=== PATIENT | male | born 1970 | race African-American/Black ===

== ENCOUNTER 2017-10-18 01:34 | Emergency (ER) | payer SELFPAY ==
[~2017-10-18] VITALS: Ht 175.3 cm; Wt 72.6 kg
[~2017-10-18 01:34] MED LIST: IBP800T PO; SULF1TAB35 PO; TRM50T PO
--- OUTSIDE RECORDS SUMMARY | 2017-10-18 01:41 | XMS REPORT ---
Author Author LINH METCALF Organization [employer] Address Unknown Phone Unavailable Care Team Providers Care Content Curator Name Role Phone LINH METCALF CP Unavailable Allergies No Known Allergies Problems Problem Type Condition ICD-9 Code Onset Dates Condition Status Problem Unspecified gastritis and gastroduodenitis without mention of hemorrhage 535.50 Active Problem Chest pain, unspecified 786.50 Active Problem Screening examination for venereal disease V74.5 Active Assessment UTI (urinary tract infection) 599.0 Active Medications No Known Medications Procedures Procedure Coding System Code Date Office Visit, New Pt., Level 1 CPT-4 54930 Jul 13, 2015 URINALYSIS, AUTO, W/O SCOPE CPT-4 83898 Jul 13, 2015 Results Name Result Date Reference Range Unit Abnormality Flag UA LONG DIP (IN HOUSE) Summary Purpose [employer] Submission
--- OUTSIDE RECORDS SUMMARY | 2017-10-18 01:41 | XMS REPORT ---
Author Author LINH METCALF Organization [employer] Address Unknown Phone Unavailable Care Team Providers Care Mixer Operator Hot Metal Name Role Phone LINH METCALF CP Unavailable Allergies No Known Allergies Problems Problem Type Condition ICD-9 Code Onset Dates Condition Status Problem Unspecified gastritis and gastroduodenitis without mention of hemorrhage 535.50 Active Problem Chest pain, unspecified 786.50 Active Problem Screening examination for venereal disease V74.5 Active Medications Medication Code System Code Instructions Start Date End Date Status Dosage Ibuprofen [facility] [address]-06 200 MG Orally every 6 hrs Jun 22, 2015 1 tablet as needed Results No Known Results Summary Purpose [employer]Works Submission
--- OUTSIDE RECORDS SUMMARY | 2017-10-18 01:41 | XMS REPORT ---
Author FLORENCIO Calvillo [facility] [employer] Address Unknown Phone Unavailable Care Team Providers Care Plywood Layup Line Core Feeder Name Role Phone FLORENCIO BARNARD CP Unavailable Allergies, Adverse Reactions, Alerts Substance Reaction Event Type N.K.D.A. Info Not Available Non Drug Allergy Problems Problem Type Condition Code Onset Dates Condition Status Problem Unspecified gastritis and gastroduodenitis without mention of hemorrhage 535.50 Active Problem Chest pain, unspecified 786.50 Active Problem Screening examination for venereal disease V74.5 Active Assessment Dental caries K02.9 Active Medications No Known Medications Procedures Procedure Coding System Code Date SURG REMOVAL ERUPTED TOOTH CPT-4 D7210 January 10, 2016 Vital Signs Date/Time: January 10, 2016 Blood Pressure Diastolic 105 mmHg Blood Pressure Systolic 167 mmHg Height 69 in Results No Known Results Summary Purpose [employer] Submission
--- OUTSIDE RECORDS SUMMARY | 2017-10-18 01:42 | XMS REPORT ---
Author Author AVELINO VANCE Organization [employer] Address Unknown Phone Unavailable Care Team Providers Care Irrigation Flume Layer Name Role Phone AVELINO VANCE CP Unavailable Allergies No Known Allergies Problems Problem Type Condition ICD-9 Code Onset Dates Condition Status Problem Unspecified gastritis and gastroduodenitis without mention of hemorrhage 535.50 Active Problem Chest pain, unspecified 786.50 Active Problem Screening examination for venereal disease V74.5 Active Medications Medication Code System Code Instructions Start Date End Date Status Dosage Pepcid [facility] [address]-20 20 MG Orally 2 times a day Jun 29, 2015 1 tablet at bedtime Results No Known Results Summary Purpose eClinicalWorks Submission
--- OUTSIDE RECORDS SUMMARY | 2017-10-18 01:42 | XMS REPORT ---
Author Author LINH METCALF [facility] Address [address] [place] [address] Care Team Providers Care Senior Software Quality Analyst Name Role Phone LINH METCALF Unavailable PROBLEMS Type Condition ICD9-CM Code QAZ38-LE Code Onset Dates Condition Status SNOMED Code Problem Screening examination for venereal disease V74.5 Active 436422998 Problem Unspecified gastritis and gastroduodenitis without mention of hemorrhage 535.50 Active 487334858 Problem Chest pain, unspecified 786.50 Active 64789120 ALLERGIES Unknown Allergies SOCIAL HISTORY No smoking Hx information available PLAN OF CARE VITAL SIGNS MEDICATIONS Medication Instructions Dosage Frequency Start Date End Date Duration Status Pepcid 20 MG Orally 2 times a day 1 tablet at bedtime 12h 08 Jun, 2015 30 day(s) Active RESULTS No Results PROCEDURES No Known procedures IMMUNIZATIONS No Known Immunizations
--- OUTSIDE RECORDS SUMMARY | 2017-10-18 01:42 | XMS REPORT ---
Author Author LINH METCALF Organization [employer] Address Unknown Phone Unavailable Care Team Providers Care Resident Assistant Cna Name Role Phone LINH METCALF CP Unavailable Allergies No Known Allergies Problems Problem Type Condition ICD-9 Code Onset Dates Condition Status Problem Unspecified gastritis and gastroduodenitis without mention of hemorrhage 535.50 Active Problem Chest pain, unspecified 786.50 Active Problem Screening examination for venereal disease V74.5 Active Medications Medication Code System Code Instructions Start Date End Date Status Dosage Pepcid [facility] [address]-12 20 MG Orally Once a day INMATE Jul 16, 2015 1 tablet at bedtime Results No Known Results Summary Purpose eClinicalWorks Submission
--- OUTSIDE RECORDS SUMMARY | 2017-10-18 01:42 | XMS REPORT | Continuity of Care Document ---
Author Author [facility] Address Unknown Phone Unavailable Allergies There is no data. Medications There is no data. Problems Date Dx Coded Attending Type Code Diagnosis Diagnosed By 07/09/2013 AP ASHER DO V74.5 STD SCREEN 07/09/2013 LINH METCALF APRN V74.5 STD SCREEN 02/10/2014 LINH METCALF APRN 535.50 GASTRITIS UNSPEC 02/10/2014 LINH METCALF APRN 786.50 CHEST PAIN Procedures Code Description [place] [address] ROUTINE VENIPUNCTURE 07/09/2013 65602 HEPATITIS PROFILE 07/10/2013 04018 HIV ANTIBODIES (L) 07/11/2013 40216 SYPHILLIS-[facility] 07/15/2013 42006 GC/CHLAM URINE ([facility]) 07/15/2013 Results There is no data. Encounters ACCT No. Visit Date/Time Discharge Status Pt. Type Provider Facility Loc./Unit Complaint [id number] 02/10/2014 09:01:00 02/10/2014 23:59:59 CLS Outpatient LINH METCALF APRN [id number] 07/09/2013 15:40:00 07/09/2013 23:59:59 CLS Outpatient AP ASHER DO
--- NOTE | 2017-10-18 02:31 | ED Back Pain ---
General Chief Complaint: General Problems/Pain Stated Complaint: PINCHED NERVE IN BACK Nursing Triage Note: PATIENT STATES THAT HE HAS A PINCHED NERVE. HE HAD ONE TWO YEARS AGO AND STATES IT FEELS THE SAME. HE STATES IT IF A PAIN UNDER HIS LEFT SHOULDER BLADE. IT IS SHARP AND CAUSES PAIN WITH ROM OF HIS NECK, FINGERS GO NUMB. HE TOOK A FRIENDS FLEXERIL AND IT DID NOT HELP. Nursing Sepsis Screen: No Definite Risk Source of Information: Patient Exam Limitations: No Limitations History of Present Illness Time Seen by Provider: 02:16 Initial Comments Here with report of pain to his upper back between the left scapula and the spine. Pain onset after lifting a [employer] cabinet and address her. Apparently somebody almost dropped a cabinet and he had the gravid quickly to protect somebody else. He feels like maybe he pulled a muscle at that time. Denies other injury. This occurred about 5 days ago and pain is been going on since. Location: Paraspinous Muscles Timing/Duration: 4-5 Days Severity: Moderate Pain/Injury Location: Back Method of Injury: Other Associated Symptoms: muscle spasms, No weakness, No sensory/motor loss, No lower back pain Allergies and Home Medications Allergies Coded Allergies: No Known Drug Allergies (Unverified , 10/10/12) Home Medications Sulfamethoxazole/Trimethoprim 1 Each Tablet, 1 EACH PO BID, #10 Prescribed by: FAVIAN CORONEL on 09/19/16 0404 Constitutional: no symptoms reported Respiratory: no symptoms reported Cardiovascular: no symptoms reported Gastrointestinal: no symptoms reported Musculoskeletal: see HPI, back pain, muscle pain, muscle stiffness Psychiatric/Neurological: No Symptoms Reported Past Lggsadw-Iotqtd-Beovbc Hx Patient Social History Alcohol Use: Occasionally Uses Recreational Drug Use: No Drug of Choice: CANNIBUS Smoking Status: Current Everyday Smoker Type Used: Cigarettes Recent Foreign Travel: No Contact w/Someone Who Travel: No Recent Infectious Disease Expo: No Recent Hopitalizations: No Physical Abuse: No Sexual Abuse: No Immunizations Up To Date Tetanus Booster (TDap): Less than 5yrs Seasonal Allergies Seasonal Allergies: No Surgeries History of Surgeries: Yes (RIGHT HAND) Respiratory History of Respiratory Disorde: No Cardiovascular History of Cardiac Disorders: No Neurological History of Neurological Disord: No Gastrointestinal History of Gastrointestinal Di: No Musculoskeletal History of Musculoskeletal Dis: No Endocrine History of Endocrine Disorders: No Cancer History of Cancer: No Psychosocial History of Psychiatric Problem: No Suicide Risk Score: 0 Integumentary History of Skin or Integumenta: Yes Skin/Integumentary Disorders: Recent Skin Changes Blood Transfusions History of Blood Disorders: No Reviewed Nursing Assessment Reviewed/Agree w Nursing PMH: Yes Family Medical History Significant Family History: No Pertinent Family Hx Physical Exam Vital Signs Vital Sign - Last 12Hours 10/18/17 01:51 Temp 99.0 Pulse 90 Resp 20 B/P (MAP) 153/113 (126) Pulse Ox 97 O2 Delivery Room Air Capillary Refill : Less Than 3 Seconds General Appearance: No Apparent Distress, WD/WN Neck: Full Range of Motion, Normal Inspection, Non Tender, Supple Cardiovascular: Regular Rate, Rhythm, No Murmur Respiratory: Lungs Clear, Normal Breath Sounds Back: No Vertebral Tenderness, Muscle Spasm, No Vertebral Tenderness, Other ( pain between the left scapula upper part and the spine.) Neurologic/Psychiatric: Alert, Oriented x3 Progress/Results/Core Measures Results/Orders My Orders Orders - RM BROTHERS MD Ketorolac Injection (Toradol Injection) (10/18/17 02:23) Orphenadrine Injection (Norflex Injectio (10/18/17 02:23) Hydrocodone/Apap 7.5/325 Tab (Lortab 7. (10/18/17 02:24) Vital Signs/I&O Vital Sign - Last 12Hours 10/18/17 01:51 Temp 99.0 Pulse 90 Resp 20 B/P (MAP) 153/113 (126) Pulse Ox 97 O2 Delivery Room Air Blood Pressure Mean: 126 Progress Note : Progress Note Seen and evaluated. Toradol 60 mg IM, Norflex 60 mg IM and hydrocodone 7.5 mg by mouth ordered. Discharged home with return precautions. Patient verbalize understanding instructions and agreement with plan. Departure Impression Impression: Primary Impression: Upper back pain on left side Disposition: HOME, SELF-CARE Condition: Stable Departure-Patient Inst. Decision time for Depature: 02:31 Referrals: NO,LOCAL PHYSICIAN (PCP/Family) Primary Care Physician Patient Instructions: Muscle Strain (DC) Add. Discharge Instructions: All discharge instructions reviewed with patient and/or family. Voiced understanding. You may take ibuprofen 800 mg every 8 hours as needed for pain. You may use [id number] lidocaine patch such as icy hot with lidocaine or Aspercreme with lidocaine or similar to the affected area per package directions. Take other medications as directed. Follow-up with your Dr. in a few days for recheck. Return for worse pain, fever, weakness, breathing problems or other concerns as needed. Scripts Cyclobenzaprine HCl (Cyclobenzaprine HCl) 10 Mg Tablet 10 MG PO Q8H Y for SPASMS, #15 TAB 0 Refills Prov: RM BROTHERS MD 10/18/17 Hydrocodone/Acetaminophen (Hydrocodon -Acetaminophen 5-325) 1 Each Tablet 1-2 EACH PO Q6H Y for PAIN-MODERATE, #8 TAB 0 Refills Prov: RM BROTHERS MD 10/18/17 RM BROTHERS MD Oct 18, 2017 02:31
[2017-10-18] MEDS ORDERED: CYCL10TA9 PO (02:33)
[2017-10-18] MEDS ORDERED: ACHD5005 PO (02:33)
[2017-10-18] MEDS: ORPHENADRINE 60 MG/2 ML (NORFLEX) AMP IM STA (02:34)
[2017-10-18] MEDS: KETOROLAC 60 MG/2 ML VIAL IM STA (02:34)
[2017-10-18] MEDS: HYDROcodone/APAP 7.5 MG/325 MG (LORTAB, LORCET PLUS) TABLET PO STA (02:39)
[2017-10-18 02:43] VITALS: BP 153/113
== END 2017-10-18 02:43 | disposition home or self-care (01) ==
LOC: EDUNIT# 01:34 → ER 01:37
DX: M54.6 Pain in thoracic spine (principal); F17.210 Nicotine dependence, cigarettes, uncomplicated; X50.0XXA Overexertion from strenuous movement or load, initial encounter
CPT/HCPCS: 99284